=== PATIENT | male | born 1955 | race Caucasian/White ===

== ENCOUNTER 2020-01-28 12:13 | Day surgery (SDC) | payer OTHER ==
[~2020-01-28] VITALS: Ht 182.9 cm; Wt 121.0 kg
[2020-01-28] MEDS ORDERED: PRILOSEC 20MG20 MG PO (12:58)
[2020-01-28 13:56] VITALS: BP 138/89; PULSE 70; TEMP 98.1
[2020-01-28 15:50] VITALS: BP 153/96; PULSE 77; TEMP 98.2
--- NOTE | 2020-01-28 15:50 | NUR ---
Patient arrives back to [facility] alert, denies pain or nausea. Patient monitor applied, vital stable. Catheter intact and flowing well. Urine is light pink in color with some sediment, no clots noted. Patient resting comfortably on bed. Patient's spouse at bedside.
[2020-01-28 16:00] VITALS: BP 134/77; PULSE 70
--- NOTE | 2020-01-28 16:00 | NUR ---
Patient given muffins and water at this time.
[2020-01-28 16:04] VITALS: TEMP 98.1
[2020-01-28 16:15] VITALS: BP 148/93; PULSE 80
--- NOTE | 2020-01-28 16:15 | NUR ---
Patient tolerated muffins and water without any nausea, denies pain, urine flowing well, vitals stable.
[2020-01-28 16:30] VITALS: BP 148/84; PULSE 75
--- NOTE | 2020-01-28 16:30 | NUR ---
Patient states he feels great and is ready to go home at any time.
--- NOTE | 2020-01-28 16:55 | NUR ---
Dismissal instructions gone over with patient and patient's spouse. Both verablize understanding and all questions answered.
--- NOTE | 2020-01-28 17:05 | NUR ---
Patient discharged to private vehicle via wheelchair with spouse. Spouse is driving. Patient and spouse leave thanking staff for services.
== END 2020-01-28 17:05 | disposition home or self-care (01) ==
LOC: SDCO 12:13
DX: D41.4 Neoplasm of uncertain behavior of bladder (principal); N35.914 Unspecified anterior urethral stricture, male; N32.9 Bladder disorder, unspecified; E66.9 Obesity, unspecified; Z68.38 Body mass index [BMI] 38.0-38.9, adult; K75.4 Autoimmune hepatitis; K21.9 Gastro-esophageal reflux disease without esophagitis; F17.210 Nicotine dependence, cigarettes, uncomplicated; F32.9 Major depressive disorder, single episode, unspecified; Z86.79 Personal history of other diseases of the circulatory system; Z79.899 Other long term (current) drug therapy
CPT/HCPCS: C1769; C1894; J0690; J1100; J2405; J2704; J3010; J7120

== ENCOUNTER 2020-02-04 04:08 | Emergency (ER) | payer OTHER ==
[~2020-02-04] VITALS: Ht 182.9 cm; Wt 121.8 kg
[~2020-02-04 04:08] MED LIST: PRILOSEC 20MG20 MG PO
[2020-02-04 04:17] VITALS: TEMP 97.8
[2020-02-04 04:57] LABS: COLLECTION METHOD CLEAN CATCH
[2020-02-04 05:07] LABS: PH 6 (5-8); SQUAMOUS EPITHELIAL None Seen /hpf; URINE APPEARANCE Cloudy; URINE BACTERIA None Seen /hpf; URINE BILIRUBIN Negative (NEGATIVE); URINE BLOOD 3+ (NEGATIVE); URINE COLOR Amber; URINE GLUCOSE 1+ (NEGATIVE); URINE KETONE Trace (NEGATIVE); URINE LEUKOCYTE ESTERASE Negative (NEGATIVE); URINE NITRATE Negative (NEGATIVE); URINE PROTEIN(semi-quant) 2+ (NEGATIVE); URINE RBC >50 /hpf; URINE UROBILINOGEN Negative (NEGATIVE)
[2020-02-04 05:32] VITALS: BP 133/99; PULSE 74
== END 2020-02-04 05:32 | disposition home or self-care (01) ==
LOC: COL.ER 04:08
PROVIDERS: Emergency Medicine
DX: R31.9 Hematuria, unspecified (principal); K21.9 Gastro-esophageal reflux disease without esophagitis; Z87.448 Personal history of other diseases of urinary system